=== PATIENT | female | born 1980 | race Two or more races ===

== ENCOUNTER 2020-01-16 11:46 | Emergency (ER) | payer OTHER ==
[~2020-01-16] VITALS: Ht 152.4 cm; Wt 112.5 kg
[2020-01-16] MEDS ORDERED: DIALYVITE 800-1 EACH PO (13:06)
[2020-01-16] MEDS ORDERED: PRENATABS FA T1 EACH PO (13:06)
[2020-01-16] MEDS ORDERED: ZITHROMAX500 MG PO (14:24)
[2020-01-16] MEDS ORDERED: ZITHROMAX200 MG PO (15:58)
== END 2020-01-16 15:59 | disposition home or self-care (01) ==
LOC: ER 11:46
DX: O98.512 Other viral diseases complicating pregnancy, second trimester (principal); B96.0 Mycoplasma pneumoniae [M. pneumoniae] as the cause of diseases classified elsewhere

== ENCOUNTER 2020-02-14 16:06 | Inpatient (IN) | payer OTHER ==
[~2020-02-14] VITALS: Ht 152.4 cm; Wt 113.9 kg
[~2020-02-14 16:06] MED LIST: DIALYVITE 800-1 EACH PO; PRENATABS FA T1 EACH PO; ZITHROMAX200 MG PO; ZITHROMAX500 MG PO
[2020-02-14] MEDS ORDERED: ADULT LOW DOSE81 M1 PO (16:18)
== END 2020-02-16 09:27 | disposition home or self-care (01) | DRG 833 ==
LOC: LDR 16:06 → OB/GYN 16:06
PROVIDERS: ADMIT Specialist
PROC: 4A1HXFZ Monitoring of Products of Conception, Cardiac Rhythm, External Approach (ICD-10-PCS; 2020-02-14)
PROC: BW40ZZZ Ultrasonography of Abdomen (ICD-10-PCS; 2020-02-14)
PROC: BT43ZZZ Ultrasonography of Bilateral Kidneys (ICD-10-PCS; 2020-02-14)
PROC: BY4FZZZ Ultrasonography of Third Trimester, Single Fetus (ICD-10-PCS; 2020-02-14)
PROC: 3E0234Z Introduction of Serum, Toxoid and Vaccine into Muscle, Percutaneous Approach (ICD-10-PCS; principal; 2020-02-15)
DX: O46.93 Antepartum hemorrhage, unspecified, third trimester (principal); O99.213 Obesity complicating pregnancy, third trimester; Z3A.28 28 weeks gestation of pregnancy; E66.8 Other obesity

== ENCOUNTER → 2020-03-19 | Outpatient (CLI) | payer OTHER ==
[~2020-03-19] MED LIST changes: +ADULT LOW DOSE81 M1 PO
== END | disposition home or self-care (01) ==
LOC: PRENATAL 13:30
DX: O26.843 Uterine size-date discrepancy, third trimester (principal); O24.410 Gestational diabetes mellitus in pregnancy, diet controlled; O36.8131 Decreased fetal movements, third trimester, fetus 1; O35.0XX1 Maternal care for (suspected) central nervous system malformation in fetus, fetus 1; O34.211 Maternal care for low transverse scar from previous cesarean delivery

== ENCOUNTER → 2020-04-18 | Outpatient (CLI) | payer OTHER | END | disposition home or self-care (01) | LOC: PRENATAL 09:30 | PROVIDERS: ATTEND Specialist | DX: O26.843 Uterine size-date discrepancy, third trimester (principal); O24.410 Gestational diabetes mellitus in pregnancy, diet controlled; O36.8131 Decreased fetal movements, third trimester, fetus 1; O34.211 Maternal care for low transverse scar from previous cesarean delivery; O99.213 Obesity complicating pregnancy, third trimester ==

== ENCOUNTER 2020-04-24 07:24 | Inpatient (IN) | payer OTHER ==
[~2020-04-24] VITALS: Ht 152.4 cm; Wt 2.7 kg
== END 2020-04-29 14:07 | disposition home or self-care (01) | DRG 784 ==
LOC: OB/GYN 07:24 → LDR 07:24 → O/R 10:27 → OB/GYN 11:36
PROVIDERS: ADMIT Specialist; ATTEND Specialist
PROC: 0UL70ZZ Occlusion of Bilateral Fallopian Tubes, Open Approach (ICD-10-PCS; 2020-04-24)
PROC: 4A1HXCZ Monitoring of Products of Conception, Cardiac Rate, External Approach (ICD-10-PCS; 2020-04-24)
PROC: 10D00Z1 Extraction of Products of Conception, Low, Open Approach (ICD-10-PCS; principal; 2020-04-24 10:30)
DX: O82 Encounter for cesarean delivery without indication (principal); O86.29 Other urinary tract infection following delivery; Z3A.37 37 weeks gestation of pregnancy; Z37.0 Single live birth; Z30.2 Encounter for sterilization